=== PATIENT | male | born 1950 | race Caucasian/White ===

== ENCOUNTER 2024-09-06 05:26 | Day surgery (SDC) | payer MEDICARE, OTHER, SELFPAY ==
[2024-09-06] VITALS (24 sets, daily range): BP systolic 115–178; BP diastolic 62–93; BMI 26.7
--- NOTE | 2024-09-06 01:27 | ED.GENMED ---
History of Present Illness
General
Chief Complaint: Abdominal Pain
Source: patient
Exam Limitations: none
Time Seen by Provider: 09/06/24 01:26
Nursing documentation reviewed up to this point in time: agreed with
History of Present Illness
History of Present Illness:
74-year-old male with a past medical history of GERD, renal stones, presents emergency department today with concerns of right-sided abdominal pain for the past few hours. Patient reports that he had dinner this evening when after, he started to
feel diffuse abdominal pain. Patient reports that he went to go lay down and noticed that the pain got worse and started to now localized to the right lower abdomen. Patient never had pain like this before. He does have a history of kidney stones
but states that this feels different he denies any pain in the groin or pain in the flank. He denies any hematuria, dysuria, urinary frequency. Patient denies any fevers , he does note subjective chills. He has not had any nausea or vomiting. He
states that the pain has gotten progressively worse. He denies any chest pain, shortness of breath, respiratory symptoms, previous abdominal surgeries.
Past History
Past History
ED Past Medical History: Other (Kindey stones)
ED Past Surgical History: Other
Social History
Tobacco: Non-smoker
Review of Systems
Review of Systems
All Other Systems: ROS reviewed and negative except as documented in HPI and ROS
Phy Exam
Physical Exam
Physical Exam:
General: Patient is well appearing and in no acute distress; non-toxic
Skin: Warm and dry, no rashes or lesions
Head: Normocephalic, atraumatic
Eyes: Sclera non-icteric. EOMs intact.
Cardiac: Regular rate
Peripheral Vascular:
Pulm: Normal respiratory effort
Abdomen: No abdominal tenderness
Musculoskeletal:
Neuro: CN II-XII intact, no focal neurologic deficits.
Psychiatric: Appropriate mood and affect.
Course
Orders/Labs/Results
Orders:
Orders
09/06/24 01:35
CT Abd/pelvis W Iv Cont Urgent
Comment:
Reason For Exam: RLQ pain
Ketorolac [Toradol] 30 mg IV NOW STA
09/06/24 01:50
Complete Blood Count/With Diff Urgent
Comprehensive Metabolic Panel Urgent
Lipase Urgent
09/06/24 02:31
Urinalysis Reflex To Culture Urgent
Date Specimen was Collected: 09/06/24
Time Specimen was Collected: 02:28
09/06/24 04:01
HYDROmorphone [Dilaudid] 0.5 mg IV NOW STA
Piperacillin/Tazo 4.5 Gram [Zosyn] 4.5 gram in 100 ml IV NOW
09/06/24 04:06
0.9% Sodium Chloride 250 ml [Nss] 250 ml IV BOLUS
09/06/24 04:19
Electrocardiogram (*1) Urgent
Reason for Study: PreOp
EKG- Treatment ONCE
Abnormal Lab Results
09/06/24 09/06/24
01:50 02:31
WBC 11.7 H 10^3/uL
(4.8-10.8)
RBC 4.62 L 10^6/uL
(4.70-6.10)
Hct 38.8 L %
(39.0-52.0)
Abs Immat Gran (auto) 0.1 H 10^3/uL
(0-0.05)
Absolute Neuts (auto) 9.4 H 10^3/uL
(1.4-6.5)
Absolute Monos (auto) 0.7 H 10^3/uL
(0.1-0.6)
Neutrophils % 79.8 H %
(42.2-75.2)
Lymphocytes % 12.4 L %
(20.5-51.1)
Glucose 103 H mg/dl
(70-99)
Urine Ketones 2+ A
(Negative)
09/06/24 01:50
09/06/24 01:50
Vital Signs
Initial and Last Documented VS:
Initial Vital Signs
Temp Pulse Resp BP Pulse Ox
98.5 F 70 18 178/93 98
09/06/24 01:12 09/06/24 01:12 09/06/24 01:12 09/06/24 01:12 09/06/24 01:12
Last Documented Vital Signs
Temp Pulse Resp BP Pulse Ox
98.5 F 70 18 147/83 98
09/06/24 01:12 09/06/24 01:12 09/06/24 01:12 09/06/24 03:00 09/06/24 04:00
MDM/Problems Addressed
Differential Diagnosis Includes:
ddx include appendicitis, nephrolithiasis, gastroenteritis, colitis
MDM/Problems Addressed:
74 y/o male hx of GERD, depression, HLP presents to the ER today with concerns of right lower quadrant abdominal pain. He has no fevers, no nausea vomiting. CT scan reveals acute appendicitis with appendiceal dilation as well as presence of
fecalith. Reviewed case with Dr. Rizzo general surgery on-call. Patient started on Zosyn, will admit to general surgery service.
Chronic conditions affecting care:
GERD, depression, HLP
*Pulse Oximetry
Patient hypoxic: no
*Critical Care Note
Total Time (30-74mins, 75-104mins- exclusive of procedures): Not Applicable
Data Reviewed
Review of Other/Old Records Reveals: Records (Reviewed documentation from 09/11/2020 patient seen for right-sided flank pain found to have a kidney stone, discharge with pain control)
Source: patient and records
Update Note
Update Note:
4 AM�received a call from physician radiology indicating acute appendicitis with appendiceal dilation and surrounding stranding as well as a fecalith, contacted Dr. Rizzo, general surgeon on-call regarding this and he did acknowledge message,
awaiting further direction regarding admission; esme started
ED Attending Note
-
Portions of this chart may have been created with voice recognition software.� Occasional wrong word or��sound alike� substitutions may have occurred due to the inherent limitations of voice recognition software.
Discharge Plan
Departure
Patient Disposition: Admit
Date of Disposition: 09/06/24
Time of Disposition: 04:32
Presentation/result/management discussed w/ accepting MD/DO: Dr. Rizzo
Patient with high blood pressure during this ER visit?: Yes
Condition: Good
Discharge Problem:
Acute appendicitis
Prescriptions:
No Action
cetirizine 10 MG tablet
10 mg PO DAILY PRN (Reason: allergies)
multivitamin [Multi-V] Tablet
1 tab PO DAILY
paroxetine HCl [Paxil] 10 mg Tablet
10 mg PO DAILY
omeprazole 10 mg Capsule,Delayed Release(Dr/Ec)
10 mg PO DAILY
rosuvastatin [Crestor] 10 mg Tablet
10 mg PO BID
cholecalciferol (vitamin D3) [Vitamin D3] 25 mcg (1,000 unit) Tablet,Chewable
25 mcg PO DAILY
Referrals:
UNKNOWN - PT DOES,NOT KNOW [Family Provider] -
Interventions
Interventions:
*Risk Screen - Suicide Last Done: 09/06/24 01:12
*General Assessment Last Done: 09/06/24 01:12
*Neglect/Abuse Screening Last Done: 09/06/24 01:12
*ED- Fall Risk Assessment Last Done: 09/06/24 02:00
*ED COVID-19 Vaccine History Last Done: 09/06/24 01:12
MZ-Nxraus-Jehtksizzd Assessment Last Done: 09/06/24 01:59
Discharge Date and Time
Print Language: [id number]
[2024-09-06] MEDS: TORADOL 30 MG IV (01:52)
[2024-09-06 01:59] LABS: % Basophils 0.6 % (0-2); % Eosinophils 1.2 % (0-6); % Immature Granulocytes 0.4 % (0-0.5); % Lymphocytes 12.4 % (20.5-51.1); % Monocytes 5.6 % (1.7-9.3); % Neutrophils 79.8 % (42.2-75.2); Absolute Basophils 0.1 10^3/uL (0-0.2); Absolute Eosinophils 0.1 10^3/uL (0-0.7); Absolute Immature Granulocytes 0.1 10^3/uL (0-0.05); Absolute Lymphocytes 1.5 10^3/uL (1.2-3.4); Absolute Monocytes 0.7 10^3/uL (0.1-0.6); Absolute Neutrophils 9.4 10^3/uL (1.4-6.5); Hematocrit 38.8 % (39.0-52.0); Hemoglobin 13.8 g/dL (13.0-18.0); Mean Corp Hgb Conc. 35.6 g/dL (33.0-37.0); Mean Corpuscular Hgb 29.9 pg (27.0-31.0); Mean Platelet Volume 9.9 fL (7.4-10.4); Nucleated Red Blood Cells % 0 % (-); Platelet Count 203 10^3/uL (130-400); Red Blood Cell Count 4.62 10^6/uL (4.70-6.10); Red Cell Dist. Width 12.7 % (11.5-14.5); White Blood Cell Count 11.7 10^3/uL (4.8-10.8)
[2024-09-06 02:21] LABS: ALT (SGPT) 20 U/L (0-50); AST (SGOT) 26 U/L (17-59); Albumin 4.3 g/dl (3.5-5.0); Alkaline Phosphatase 61 U/L (38-126); Blood Urea Nitrogen 16 mg/dl (9-20); Calcium 9.7 mg/dl (8.4-10.2); Carbon Dioxide 26 mmol/L (22-30); Chloride 106 mmol/L (98-107); Glucose 103 mg/dl (70-99); Lipase 61 U/L (23-300); Potassium 4.4 mmol/L (3.5-5.1); Sodium 140 mmol/L (135-145); Total Bilirubin 0.7 mg/dl (0.2-1.3); Total Protein 6.6 g/dl (6.3-8.2); eGFR > 60.00
[2024-09-06 02:35] LABS: Urine Albumin Negative (Neg - Trace); Urine Bilirubin Negative (Negative); Urine Character Clear (Clear); Urine Color Yellow; Urine Glucose Negative (Negative); Urine Ketone 2+ (Negative); Urine Leukocyte Negative (Negative); Urine Nitrite Negative (Negative); Urine Occult Blood Negative (Negative); Urine Specific Gravity 1.025 (<1.030); Urine Urobilinogen Negative (Neg - 1+)
[2024-09-06] MEDS: NSS 250 IV (04:16)
[2024-09-06] MEDS: DILAUDID 0.5 MG IV ×2 (04:16→08:15)
[2024-09-06] MEDS: ZOSYN 100 IV (04:16)
--- NOTE | 2024-09-06 07:16 | HPS.HSE ---
Addendum entered and electronically signed by Jason Rizzo MD 09/06/24 09:27:
Patient seen and examined independently.
Patient is a 74 yo M with a PMH of depression/anxiety, GERD, HLD, and nephrolithiasis who presents with less than 24 hours of RLQ abdominal pain. Mr. Soria states that his symptoms began somewhat acutely yesterday evening after dinner. He
initially describes a generalized achy pain which is localized to the RLQ. Symptoms have mildly improved with pain medication, though persisted. No fevers or chills, though does report a subjective clammy feeling yesterday evening. No nausea or
vomiting. No urinary symptoms. No fluctuations from a GI function. No chronic GI issues.
Gen: NAD
Abd: soft, tender to palpation in RLQ and R flank, ND, no diffuse peritonitis
Labs and CT scan imaging were reviewed
Patient is a 74 yo M p/w acute appendicitis
The natural history and pathophysiology of appendicitis was discussed. Anatomy was reviewed. Options for management including medical management with antibiotics versus surgical management with appendectomy were considered and discussed. The pros
and cons of both approaches was discussed. Specifically, we discussed failure of medical management in future episodes of appendicitis versus surgical risks. Mr. Soria is at increased risk for failure of medical management given the presence of an
appendicolith. Recommend and plan for appendectomy.
Plan for a laparoscopic appendectomy. The procedure itself, as well as the risks, benefits, and alternatives was discussed. Specifically, we discussed the risks of bleeding, infection, injury to surrounding structures (bowel, bladder), staple line
leak, need for open procedure. Typical postprocedural recovery was discussed. All questions answered. Consent signed.
-- Laparoscopic appendectomy
-- NPO, IVF
-- Abx: Zosyn
Original Note:
Family Physician
-
Family Physician: NOT KNOW UNKNOWN - PT DOES
Chief Complaint
-
'Abdomen pain'
History of Present Illness
89 year old patient with PMH of GERD, Kidney stones, nasal congestion, and Anxiety presents to ER with the complain of Abdomen pain which started after dinner. Patient noted this dull pain at Right flank area which increased in intensity overnight,
which wasn't going away with repositioning. Patient reports having chills, but no fever, pain with deep breath on Right lower side. Denies chest pain, shortness of breath, nausea, vomiting, bleed in stool or urine.
CT abdomen/pelvis acute appendicitis with appendiceal dilation and surrounding stranding as well as a fecalith
Medical History
Past Medical History
Past Medical History: Reports GERD, Hypercholesterolemia and Psychiatric
Past Surgical History: Reports None
Social History
Tobacco: Non-smoker
Alcohol: Occasional
Drug: None
Living: With Family
Family History
Family History: Not pertinent
Allergies / Home Medications
Allergies reflects when Allergies were last updated in [facility].
Home Medications with original date entered in [facility]
Allergy/Medication List:
Allergies
Allergy/AdvReac Type Severity Reaction Status Date / Time
No Known Allergies Allergy Verified 09/06/24 01:12
Home Medications
cetirizine 10 mg tablet 10 mg PO DAILY PRN allergies 09/11/20
cholecalciferol (vitamin D3) 25 mcg (1,000 unit) chewable tablet (Vitamin D3) 25 mcg PO DAILY 09/06/24
multivitamin 1 tab PO DAILY 09/06/24
omeprazole 10 mg capsule,delayed release 10 mg PO DAILY 09/06/24
paroxetine HCl 10 mg tablet (Paxil) 10 mg PO DAILY 09/06/24
rosuvastatin 10 mg tablet (Crestor) 10 mg PO BID 09/06/24
Review of Systems
-
History Source: Patient
A 12 point ROS was completed and negative except as noted: Yes
Constitutional: Reports No Symptoms
EENT: Reports No Symptoms
Respiratory: Reports No Symptoms
Cardiac: Reports No Symptoms
Abdomen/GI: Reports Abdominal Pain (Right flank to right lower abdomen )
: Reports No Symptoms
Musculoskeletal: Reports No Symptoms
Skin: Reports No Symptoms
Neurological: Reports No Symptoms
Endocrine: Reports No Symptoms
Hematologic/Lymphatic: Reports No Symptoms
Psych: Reports No Symptoms
Physical Exam
Vital Signs
Vital Signs
Temp Pulse Resp BP Pulse Ox
98.5 F 72 18 128/69 95
09/06/24 01:12 09/06/24 05:40 09/06/24 01:12 09/06/24 06:00 09/06/24 05:59
Physical Exam
General: Well Developed, Well Nourished and No Apparent Distress
HEENT: NormoCephalic, Moist mucous membranes and Atraumatic
Respiratory: Clear and Non Labored Respirations
Cardiac: S1/S2 and Regular Rhythm
Breast: Deferred by me
GI: Soft, Non Tender, Non Distended and Normal Bowel Sounds
Rectal: Deferred by Provider
Genito-urinary: Deferred by me
Musculoskeletal: No Clubbing, No Cyanosis and No Edema
Skin: Warm and Dry
Neuro: Awake, AO x 3 and Nonfocal/grossly intact
Hematologic/Lymphatic: No Lymphadenopathy
Psych: Calm and Intact Judgment/Insight
Laboratory Results
-
09/06/24 01:50
09/06/24 01:50
Laboratory Results
Total Bilirubin 0.7 mg/dl (0.2-1.3) 09/06/24 01:50
AST 26 U/L (17-59) 09/06/24 01:50
ALT 20 U/L (0-50) 09/06/24 01:50
Alkaline Phosphatase 61 U/L (38-126) 09/06/24 01:50
Lipase 61 U/L (23-300) 09/06/24 01:50
Data Reviewed
-
Lab Data: Labs Reviewed by me
Impression/Plan
-
74 y/o patient with the c/o abdomen pain
# Abdomen pain likely due to Acute Appendicitis
CT abdomen/pelvis: acute appendicitis with appendiceal dilation and surrounding stranding as well as a fecalith
-WBC 11.7
-Continue Zosyn
-continue Dilaudid for pain
-UA negative
-NPO
-Admit to General surgery Dr. Rizzo
#Hypercholesteremia
-continue Rosuvastatin
# GERD
-Continue Omeprazole
Full Code
SCD's
[2024-09-06] MEDS: ZOSYN 50 IV ×3 (09:17→23:01)
--- NOTE | 2024-09-06 09:27 | W.SUR.PREOP ---
Pre-Operative Surgical Note
-
I have examined this patient prior to the performance of the scheduled procedure.
The patient's condition is unchanged from the time of the current History and
Physical and the patient is able to undergo the scheduled procedure.
--- NOTE | 2024-09-06 10:09 | CM ---
CM met with pt bedside
Pt resides with his SO/Lucrecia in a 2 SH home with 1 CRYSTAL
Full flight to 2nd floor
Pt is indep with his ADLs
Denies use of DMEs and financial insecurities
PCP- Prabha King
Rx- [facility]
Pt's son, Cam Soria is POA [phone]
SO/Lucrecia to remain primary contact
Discharge Disposition- anticipate home, no needs
--- NOTE | 2024-09-06 15:12 | W.IMMPOSTOP ---
Surgical Immed Post Op Note
-
Primary Surgeon: So
Assisting Surgeon: None
Pre-op Diagnosis: Acute appendicitis
Post-op Diagnosis: Acute perforated appendicitis
Procedure Performed: Laparoscopic appendectomy
Anesthesia Type: General
Specimen / Cultures:
1. Appendix
Estimated Blood Loss: 3 cc
Complications: None
Operative Findings:
1. Healthy base, dilated mid/proximal body with tense distension and focal area of necrosis resulting in contained spillage during dissection of retrocecal appendix
2. Base taken with flores load stapler, mesentery and attachments with [employer]
Plan:
-- Abx: Augmentin for 4 days on DC
[2024-09-06] MEDS: NORMOSOL-R/PLASMALYTE-A 1000 IV (18:49)
[2024-09-06] MEDS: CRESTOR 40 MG PO (22:59)
[2024-09-07 03:00] VITALS: BP 107/66
[2024-09-07] MEDS: ZOSYN 50 IV (04:06)
[2024-09-07] MEDS: ROXICODONE 5 MG PO (04:34)
[2024-09-07 06:00] VITALS: BMI 26.7
--- NOTE | 2024-09-07 07:15 | W.PN.GS2 ---
Today's Communication / Plan
-
-- DC today
Assessment / Plan
-
Patient is a 74 yo M p/w acute appendicitis
POD#1 s/p laparoscopic appendectomy
AVSS
Recovering well. No postoperative concerns. Discharge today.
-- Regular diet
-- HLIV
-- Pain control: Tylenol, Toradol, Oxycodone
-- Abx: Zosyn, plan for Augmentin on DC
-- Home meds
-- DVT: Lovenox
-- DC today
Subjective Data
-
Date of Service: September 07, 2024
No complaints. Pain well-controlled, does report some soreness with certain positions. No nausea or vomiting. Passing flatus, no BM. Afebrile.
Objective Data
-
Intake and Output
09/06/24 09/07/24 09/08/24
06:59 06:59 06:59
Intake Total 400 / 400
Balance 400 / 400
Intake:
IV fluids (Total) 350 / 350
normosol 350 / 350
IV piggybacks 50 / 50
Vital Signs
Temp Pulse Resp BP Pulse Ox
98.0 F 78 18 107/66 97
09/07/24 03:00 09/07/24 03:00 09/07/24 03:00 09/07/24 03:00 09/07/24 03:00
Lab Results
09/06/24 01:50
09/06/24 01:50
Calcium 9.7 mg/dl (8.4-10.2) 09/06/24 01:50
Total Bilirubin 0.7 mg/dl (0.2-1.3) 09/06/24 01:50
AST 26 U/L (17-59) 09/06/24 01:50
ALT 20 U/L (0-50) 09/06/24 01:50
Alkaline Phosphatase 61 U/L (38-126) 09/06/24 01:50
Total Protein 6.6 g/dl (6.3-8.2) 09/06/24 01:50
Albumin 4.3 g/dl (3.5-5.0) 09/06/24 01:50
Physical Exam
-
Gen: NAD
Abd: soft, appropriately tender, ND, non-peritoneal, incisions c/d/i - no erythema, ecchymosis or drainage
Patient has a mcgarry catheter: No
Patient has a central line: No
[2024-09-07 07:50] VITALS: BP 105/51
[2024-09-07] MEDS: PAXIL 10 MG PO (08:13)
[2024-09-07] MEDS: PROTONIX 20 MG PO (08:13)
--- NOTE | 2024-09-07 08:26 | CM ---
Pt cleared for discharge to home today s/p lap appy. will drive.
IMM issued yesterday. Pt denies discharge planning needs.
Plan: Home, no needs.
--- NOTE | 2024-09-07 12:11 | CM ---
Pt discharged to home this morning. Imm was provided late in the day yesterday. Pt signed and copy placed in chart.
[facility].
Plan: Discharge to home with no identified needs.
== END 2024-09-07 08:59 | disposition home or self-care (01) | DRG 399 ==
LOC: PACU 05:26
PROVIDERS: Physician Assistant; ATTENDING PHYSICIAN Surgery; EMERGENCY PHYSICIAN Emergency Medicine
PROC: 0DTJ4ZZ Resection of Appendix, Percutaneous Endoscopic Approach (ICD-10-PCS; 2024-09-06)
DX: K35.32 Acute appendicitis with perforation, localized peritonitis, and gangrene, without abscess (principal); K56.41 Fecal impaction
CPT/HCPCS: 44970; 88304; 74177; 80053; 81003; 83690; 85025; 93005; 96361; 96374; 96375; 99285; C1776; Q9967

== ENCOUNTER 2024-11-13 07:03 | Emergency (ER) | payer MEDICARE, OTHER, SELFPAY ==
[2024-11-13 07:17] VITALS: BP 153/88
--- NOTE | 2024-11-13 09:26 | ED.GENMED ---
History of Present Illness
General
Chief Complaint: Extremity Pain (non-traumatic)
Time Seen by Provider: 11/13/24 08:59
History of Present Illness
History of Present Illness:
74-year-old male presents the emergency department for evaluation of right shoulder and trapezius area pain for the past 2 to 3 days. Worse when he rotates his head to the left. He has mild pain with right upper extremity movement. Went to urgent
care 2 days ago and reportedly shoulder x-ray started on meloxicam with no improvement. Denies any acute injuries or trauma. He is a motorcoach driver and throws baseballs frequently.
Past History
Past History
ED Past Medical History: Other (Kindey stones)
ED Past Surgical History: Other
Social History
Tobacco: Non-smoker
Review of Systems
Review of Systems
Allergies reviewed?: Yes
All Other Systems: ROS reviewed and negative except as documented in HPI and ROS
Phy Exam
Physical Exam
Physical Exam:
GEN: Well appearing, NAD, WDWN
HEENT: Oral mucosa moist, no scleral icterus
Cardiac: Regular rate
Lung: No respiratory distress, no tachypnea
MSK: No gross deformity or injuries. R shoulder ROM normal in all [place], slight crepitus noted, no joint effusion or tenderness to palpation, ROM is pain free. Tenderness to the R trapezius body, worse with cervical ROM. No RUE weakness, radial
pulse 2+
Skin: Good color, no pallor or jaundice, no rashes
Neuro: AO x3, moves all extremities freely
Psych: Calm, cooperative
Course
Orders/Labs/Results
Orders:
Orders
11/13/24 07:21
EKG [Electrocardiogram (*1)] Urgent
Reason for Study: Other
Other Reason for Exam: shoulder pain no injury
11/13/24 07:22
EKG- Treatment ONCE
Vital Signs
Initial and Last Documented VS:
Initial Vital Signs
Temp Pulse Resp BP Pulse Ox
97.8 F 56 18 153/88 99
11/13/24 07:17 11/13/24 07:17 11/13/24 07:17 11/13/24 07:17 11/13/24 07:17
Last Documented Vital Signs
Temp Pulse Resp BP Pulse Ox
97.8 F 56 18 153/88 99
11/13/24 07:17 11/13/24 07:17 11/13/24 07:17 11/13/24 07:17 11/13/24 09:26
MDM/Problems Addressed
MDM/Problems Addressed:
Symptoms most likely representing brachial neuritis, less likely subacromial bursitis given lack of impingement symptoms or focal tenderness. No indication for repeat x-rays at this point. Given that NSAIDs have not been beneficial will trial a
course of corticosteroids
*Pulse Oximetry
SaO2: 99
Oxygen Mode of Delivery: Room air
Patient hypoxic: no
*Critical Care Note
Total Time (30-74mins, 75-104mins- exclusive of procedures): Not Applicable
ED Attending Note
-
Portions of this chart may have been created with voice recognition software.� Occasional wrong word or��sound alike� substitutions may have occurred due to the inherent limitations of voice recognition software.
Discharge Plan
Departure
Patient Disposition: Home (Routine Discharge)
Date of Disposition: 11/13/24
Time of Disposition: 09:26
Patient with high blood pressure during this ER visit?: No
Discharge Problem:
Brachial neuritis
Instructions: Radiculopathy of the neck and back (including sciatica)
Prescriptions:
New
methylprednisolone [Medrol (Hiram)] 4 mg tablets,dose pack
See Rx Instructions .ROUTE .COMPLEX Qty: 21 0RF
Rx Instructions:
orally per package directions
oxycodone 5 mg tablet
5 mg PO Q8H PRN (Reason: Pain) Qty: 8 0RF
No Action
cetirizine 10 MG tablet
10 mg PO DAILYPRN PRN (Reason: allergies)
multivitamin Tablet
1 tab PO DAILY
paroxetine HCl [Paxil] 10 mg Tablet
10 mg PO DAILY
omeprazole 10 mg Capsule,Delayed Release(Dr/Ec)
10 mg PO DAILY
cholecalciferol (vitamin D3) [Vitamin D3] 25 mcg (1,000 unit) Tablet,Chewable
25 mcg PO DAILY
rosuvastatin [Crestor] 40 mg Tablet
40 mg PO QPM
acetaminophen 325 mg tablet
650 mg PO Q4HPRN PRN (Reason: mild pain) Qty: 1 0RF
amoxicillin-pot clavulanate 875-125 mg tablet
1 tab PO Q12 4 Days Qty: 8 0RF
ibuprofen 200 mg tablet
400 - 600 mg PO Q6HPRN PRN (Reason: moderate pain) Qty: 1 0RF
oxycodone 5 mg tablet
5 mg PO Q4HPRN PRN (Reason: breakthrough/severe pain) Qty: 10 0RF
Referrals:
Sanjiv Jade PA-C [Family Provider, Family Practice]
Interventions
Interventions:
*Risk Screen - Suicide Last Done: 11/13/24 07:17
*General Assessment Last Done: 11/13/24 07:17
*Neglect/Abuse Screening Last Done: 11/13/24 07:17
*ED COVID-19 Vaccine History Last Done: 11/13/24 07:17
*Nursing Disposition Last Done: 11/13/24 09:31
ED-Skin Assessment Last Done: 11/13/24 09:13
ED-Peripheral Vascular Assessment Last Done: 11/13/24 09:13
ED-Musculoskeletal Assessment Last Done: 11/13/24 09:13
Discharge Date and Time
Discharge Date/Time: 11/13/24 09:32
Print Language: [id number]
== END 2024-11-13 09:32 | disposition home or self-care (01) ==
LOC: EMR 07:03
PROVIDERS: EMERGENCY PHYSICIAN Emergency Medicine; FAMILY PHYSICIAN Physician Assistant Medical
DX: M54.12 Radiculopathy, cervical region (principal)
CPT/HCPCS: 99283; 93005